=== PATIENT | female | born 1975 | race Caucasian/White ===

== ENCOUNTER 2020-05-08 06:03 | Day surgery (SDC) | payer BC, OTHER ==
[~2020-05-08] VITALS: Ht 172.7 cm; Wt 79.4 kg
[~2020-05-08 06:03] MED LIST: BARIATRIC MV-I1 EACH PO; BUPROPION HCL150 M1 PO; CALCIUM500 MG PO; DERMACINRX5000 UNIT PO; MIRALAX17 G1 PO; OMEPRAZOLE40 MG PO; ZYRTEC10 M5 PO
[2020-05-08 06:57] VITALS: BP 105/72
[2020-05-08 11:37] VITALS: BP 105/72
--- NOTE | 2020-05-09 07:45 | O ---
[address] [address] OPERATIVE REPORT Name: ELSIE TOBIN Room #: [facility].#: [id number] Admission: 05/08/20 Attend Phys: Juan Lund MD Discharge: 05/08/20 Date of : 75 Report #: [id number] THIS REPORT FOR: cc: URMILA BEARD - Family physician unknown Juan Lund MD ~ CC: URMILA JOHNSTON unknown Juan Lund DATE OF SERVICE: 05/08/2020 SERVICE: Orthopedics. FACILITY: [facility]. SURGEON: Juan Lund MD AUTOMATIC SEAMER: Viktoria Mcneil NP INDICATION FOR AUTOMATIC SEAMER: Extremity positioning, retraction, assistance with the reconstruction and wound exposure and closure. PREOPERATIVE DIAGNOSES: 1. Left knee pain. 2. Left knee patellar maltracking/malalignment. 3. Left knee recurrent patellar instability. 4. Left knee patellar chondromalacia. POSTOPERATIVE DIAGNOSES: 1. Left knee pain. 2. Left knee patellar maltracking/malalignment. 3. Left knee recurrent patellar instability. 4. Left knee patellar chondromalacia. PROCEDURES: 1. Left knee Matrix based autologous chondrocyte implantation to the patella. 2. Left knee open medial patellofemoral ligament reconstruction. 3. Left knee open anterior medializing tibial tubercle osteotomy. 4. Left knee open lateral release. COMPLICATIONS: None. DRAINS: None. SPECIMENS: None. [address] [address] OPERATIVE REPORT Name: ELSIE TOBIN Room #: DEP [facility]#: [id number] Admission: 05/08/20 Attend Phys: Juan Lund MD Discharge: 05/08/20 Date of : 75 Report #: [id number] ANESTHESIA: General with regional. ESTIMATED BLOOD LOSS: 30 mL. FINDINGS: 1. Successful 5.5 squared cm DELANO procedure to the patella. 2. MPFL reconstruction fixed to the medial femur with a 5.5 mm Arthrex bioabsorbable SwiveLock suture anchor in a V-shaped a semitendinosis graft fixed to the patella with 3 mm PushLock anchor x 2 with dialed-in tension. 3. Tibial tubercle osteotomy fixed with Synthes size 48 and a 44 mm large fragment non-cannulated screws. HISTORY: The patient is a 44-year-old female with a history of many years of left knee pain and recurrent patellar instability. She had patellar maltracking. We performed arthroscopy with chondroplasty and cartilage biopsy a couple of years ago. Her BMI was increased and was above the threshold for DELANO procedure and she underwent a weight loss surgery and had successful weight loss and had a very good recovery from that, but continued to have knee pain attributable to the patellar instability and maltracking and chondromalacia. She was therefore indicated for stage 2 of the reconstruction. We discussed this in detail. Risks, benefits, alternatives, and indication of surgery discussed with her. Risks include but not limited to pain, bleeding, infection, injury to nerves or blood vessels, persistent pain despite surgical intervention, failure of any repairs, progression of preexisting chondral injury, stiffness, need for further surgery as well as conversion to arthroplasty in the future as well as complications related to anesthesia such as stroke, heart attack, pulmonary complications, thromboembolic disease and . Despite these risks, she wished to proceed. PROCEDURE IN DETAIL: After left lower extremity was correctly identified in the preoperative holding area as the operative extremity, the patient underwent placement of single shot regional nerve block. She was then taken to the operating room where general anesthesia was induced without complication. She was padded appropriately. Prophylactic antibiotics were administered at appropriate time. Tourniquet was applied to the left leg. Left lower extremity was then prepped and draped in standard sterile fashion. Timeout procedure performed. Esmarch was used. Tourniquet inflated to 250 mmHg. Standard anterior approach was made to the knee with medial parapatellar arthrotomy with care taken to protect the cartilage throughout. The medial border of the patella was exposed and there was a deep decorticated creating a small groove in the patella superior half medially and then dissected through the appropriate layers for the MPFL reconstruction and then made a small stab incision on the medial aspect of the knee. Dissection was taken down to the medial aspect of the knee at the medial epicondyle for plans for the MPFL reconstruction. [address] [address] OPERATIVE REPORT Name: ELSIE TOBIN Room #: DEP [facility]#: [id number] Admission: 05/08/20 Attend Phys: Juan Lund MD Discharge: 05/08/20 Date of : 75 Report #: [id number] The exposure was completed. The retropatellar fat pad was dissected free from the patellar tendon and with the patellar tendon free. I then performed an oblique cut at the tibial tubercle with the microsagittal saw allowing for a medializing osteotomy of the tibial tubercle. With the patella free and the tubercle osteotomy performed, there was significant lateral tethering still, so I performed an open lateral release protecting the synovial layer working on the lateral retinaculum and lateral patellofemoral ligament structures. Care was taken to protect the superior lateral geniculate artery and hemostasis was achieved. The patella was then everted and then we turned our attention towards the AC reconstruction. A 5.5 squared cm oval template was then used and then a punch was performed around the pathologic tissue, which had grade 4 and grade 3 chondromalacia over approximately 55-60% of the surface area of the patella focused inferiorly and medially because her patella was riding along the lateral aspect of the lateral femoral condyle and a severely displaced position chronically. We then resected the pathologic cartilage including the calcified cartilage layer in a typical fashion for DELANO and then let the tourniquet down and obtained hemostasis. There was minimal bleeding at the graft implantation site. The DELANO membrane was then cut out to the 5.5 squared cm template and then the thin layer of fibrin glue was placed on the recipient site and then the graft was applied with the acetabular side down against the patella. We then eliminated the air bubbles and then placed the perimeter of Tisseel fibrin glue around the edge and then carefully dissected free the excess fibrin glue. The graft was quite stable at this point. We allowed it to cure in the appropriate fashion. Then, gently the patella was reduced and the patella was medialized into the trochlea. After we had provisionally fixed the tibial tubercle osteotomy with 2.0 K wires x 2 in order to address the overall tracking of the patella. I was happy with the appearance grossly at this point, so we passed the graft of the MPFL through the tension of all sutures that were placed at the 12 and 3 o'clock position on the medial aspect of the superior patella. The graft was then tensioned accordingly and they were tied and reinforced. Under C-arm fluoroscopy, the 4.5 mm large fragment screws were placed in lag screw technique in a divergent pattern with countersinking performed. Good purchase was achieved with compression of the osteotomy. We then packed the residual bone from the procedure around the lateral aspect of the osteotomy for bone grafting and then thoroughly irrigated and then closed the arthrotomy with 0 Vicryl suture in [id number] fashion, closed the lateral side with a lateral release was performed and confirmed hemostasis. Skin was closed with 2-0 Vicryl followed by running subcuticular 3-0 Monocryl. Sterile dressing was applied followed by a compression hose and a PolarCare device and a knee brace locked in [facility] [address] [address] OPERATIVE REPORT Name: ELSIE TOBIN Room #: DEP [facility].#: [id number] Admission: 05/08/20 Attend Phys: Juan Lund MD Discharge: 05/08/20 Date of : 75 Report #: [id number] extension with range of motion 0-30 degrees. There were no complications. All counts were correct. <ELECTRONICALLY SIGNED> By: Juan Lund MD 05/09/20 0745 1110 1225 Juan Lund MD /nt
== END 2020-05-08 13:15 | disposition home or self-care (01) ==
LOC: OR 06:03 → TBA 06:03 → OR 11:36
PROVIDERS: ATTEND Orthopaedic Surgery Sports Medicine
DX: M25.562 Pain in left knee (principal); M22.2X2 Patellofemoral disorders, left knee; M25.362 Other instability, left knee; M22.42 Chondromalacia patellae, left knee; F32.9 Major depressive disorder, single episode, unspecified; F41.9 Anxiety disorder, unspecified; Z98.890 Other specified postprocedural states; Z79.899 Other long term (current) drug therapy; Z87.442 Personal history of urinary calculi; Z11.59 Encounter for screening for other viral diseases; Z88.0 Allergy status to penicillin; Z88.8 Allergy status to other drugs, medicaments and biological substances
CPT/HCPCS: 50010; 50101; 50415; 50951; 50954; 51320; 51436; 52001; 52203; 52256; 52282; 53337; 54118; 56527; 56528; 57103; 57180; 57415; 58129; 58130; 58131; 58132; 58133; 62110; 62900; 64042; 70005